=== PATIENT | female | born 1980 | race Caucasian/White ===

== ENCOUNTER 2019-10-11 22:28 | Inpatient (IN) | payer SELFPAY ==
[~2019-10-11] VITALS: Ht 162.6 cm; Wt 64.0 kg
[2019-10-11] MEDS ORDERED: IV RINGERS SOLUTION,LACTATED 1,000 ML IV SCH (23:30)
--- NOTE | 2019-10-11 23:30 | PHYS DOC ---
Adult General Chief Complaint Chief Complaint: TOE PROBLEM.." I am worried... I have gangrene of my toes.. the Lt is the worse... I am diabetic... I have DKA x 2 .. but I think the infection in my toes... are making my diabetes worse..." HPI HPI Patient is a 39 year old female who presents with bilateral lst toe infections. Patient's left first toe is worse in her right first toe. Both toes or red, swollen and and draining pus. Patient has lost the nail on her left toe. Mid foot area appears to be swollen. There are no striations. There is no adenopathy . Does have some decreased sensation on the lateral side of first toe on left. Patient known diabetic. Has had 2 recent episodes of DKA. Patient does continue to smoke. Patient recently admitted at [facility] and also at for DKA. Patient does not know her current glucose level. Patient normally takes NPH and regular insulin for her diabetes. No recent travel. No specific ill contacts. No history immunosuppression. Her normal Insulin usage is 10 units regular + 12 units NPH Am, 10 regular units a at noon, 12 regular units at dinner and 12 NPH HS. Review of Systems Review of Systems Constitutional: Denies fever or chills [] Eyes: Denies change in visual acuity, redness, or eye pain [] HENT: Denies nasal congestion or sore throat [] Respiratory: Denies cough or shortness of breath [] Cardiovascular: No additional information not addressed in HPI [] GI: Denies abdominal pain, nausea, vomiting, bloody stools or diarrhea [] : Denies dysuria or hematuria [] Musculoskeletal: Denies back pain or joint pain. The [patient]complaints of bilateral foot pain and cellulitis of the first toes Integument: Denies rash or skin lesions [] Neurologic: Denies headache, focal weakness or sensory changes [] Endocrine: Denies polyuria or polydipsia [] All other systems were reviewed and found to be within normal limits, except as documented in this note. Family History Family History Diabetes Current Medications Current Medications See nursing for home meds Allergies Allergies No known drug allergies Physical Exam Physical Exam Constitutional: Moderate acute distress, non-toxic appearance. [] HENT: Normocephalic, atraumatic, bilateral external ears normal, oropharynx moist, no oral exudates, nose normal. [] Eyes: PERRLA, EOMI, conjunctiva normal, no discharge. [] Neck: Normal range of motion, no tenderness, supple, no stridor. [] Cardiovascular:Heart rate regular rhythm, no murmur [] Lungs & Thorax: Bilateral breath sounds with apex with few scattered wheezes on auscultation [] Abdomen: Bowel sounds normal, soft, no tenderness, no masses, no pulsatile masses. [] Skin: Warm, dry, no erythema, no rash. [] Back: No tenderness, no CVA tenderness. [] Extremities: No tenderness, no cyanosis, no clubbing, ROM intact, no edema. [] Except findings of cellulitis and bilateral first toes as per history of present illness Neurologic: Alert and oriented X 3, normal motor function, normal sensory function, no focal deficits noted. [] Psychologic: Affect anxious, judgement normal, mood normal. [] EKG EKG [] Radiology/Procedures Radiology/Procedures [][place] [address] IMAGING REPORT Signed PATIENT: MARIA DEL ROSARIO LONDON AACCOUNT: [id number] : 1980 LOCATION: ER AGE: 39 SEX: F EXAM STATUS: REG ER ORD. PHYSICIAN: QUENTIN NOWAK MD REASON: Bilateral great toe infections. Hx diabetes PROCEDURE: FOOT BILAT 3V Exam: Bilateral feet 3 views INDICATION: Bilateral great toe infection TECHNIQUE: Frontal, lateral and oblique views of the right and left foot Comparisons: None FINDINGS: Left foot: Subacute appearing fracture involving the proximal diaphysis of the second and third metatarsals. No acute fractures are identified. There is soft tissue swelling at the first digit. Bone mineralization is normal. Joint spaces are well-maintained. Right foot: Bone mineralization is normal. No acute or healed fractures. Mild soft tissue swelling at the first digit. Joint spaces are well-maintained. IMPRESSION: 1. Soft tissue swelling at the first digits bilaterally without underlying osseous abdomen identified. 2. Subacute appearing fractures involving the proximal diaphysis of the second and third metatarsals on the left foot. Electronically signed by: Marisol Fritz MD (10/12/2019 1:59 AM) [facility] DICTATED AND SIGNED BY: MARISOL FRITZ MD DATE: 10/12/19 0159 CC: QUENTIN NOWAK MD; PCP,OMAR ~ Course & Med Decision Making Course & Med Decision Making Pertinent Labs and Imaging studies reviewed. (See chart for details) Patient admitted to for further eval and tx. . Bone scan and US art. pending at time of admission. Impression: 1. Cellulitis- 1st toe bilateral ( Eval for osteomyelitis ) 2. DM- 225 3. Hypokalemia 3.0 4. Hyponatremia 133 5. Malnutrition alb. 3.0 6. Tobacco Use 7. Elevated Alk Phos. 161 8. Drug Screen + Meth./ETOH 9. Hx. Lt foot Fx [] Dragon Disclaimer Dragon Disclaimer This electronic medical record was generated, in whole or in part, using a voice recognition dictation system. Departure Departure: Disposition: 01 HOME/RESIDENCE PRIOR TO ADM Condition: STABLE Referrals: PCP,OMAR (PCP) Stephen Disclaimer This chart was dictated in whole or in part using Voice Recognition software in a busy, high-work load, and often noisy Emergency Department environment. It may contain unintended and wholly unrecognized errors or omissions. QUENTIN NOWAK MD Oct 11, 2019 23:30
[2019-10-12 01:00] LABS: BASO # 0.2 x10^3/uL (0.0-0.2); BASO % 3 % (0-3); EOS # 0.1 x10^3/uL (0.0-0.7); EOS % 2 % (0-3); HEMOGLOBIN 12.2 g/dL (12.0-15.5); LYMPH # 1.9 x10^3/uL (1.0-4.8); LYMPH % 23 % (24-48); MEAN CORPUSCULAR HEMOGLOBIN 30 pg (25-35); MEAN CORPUSCULAR HGB CONC 32 g/dL (31-37); MEAN CORPUSCULAR VOLUME 94 fL (79-100); MONO # 0.5 x10^3/uL (0.0-1.1); MONO % 6 % (0-9); NEUT # 5.5 x10^3uL (1.8-7.7); NEUT % 67 % (31-73); PLATELET COUNT 458 x10^3/uL (140-400); RED BLOOD COUNT 4.03 x10^6/uL (3.50-5.40); RED CELL DISTRIBUTION WIDTH 14.8 % (11.5-14.5); WHITE BLOOD COUNT 8.2 x10^3/uL (4.0-11.0)
[2019-10-12 01:08] LABS: CALCIUM 9.1 mg/dL (8.5-10.1); CREATININE 0.8 mg/dL (0.6-1.0); GFR 80.7
[2019-10-12 01:08] LABS: BARBITURATES NEG (NEG); BENZODIAZEPINES NEG (NEG); CANNABINOIDS NEG (NEG); COCAINE NEG (NEG); METHADONE NEG (NEG); OPIATES NEG (NEG); PHENCYCLIDINE NEG (NEG)
[2019-10-12 01:09] LABS: AMPHETAMINE/METHAMPHETAMINE POS (NEG)
[2019-10-12 01:14] LABS: BILIRUBIN,URINE NEG (NEG); CLARITY,URINE CLOUDY; COLOR,URINE YELLOW; GLUCOSE,URINE >=1000 mg/dL (NEG)
[2019-10-12 01:15] LABS: BACTERIA,URINE MANY /HPF (0-FEW); NITRITE,URINE POS (NEG); RBC,URINE OCC /HPF (0-2); SQUAMOUS EPITHELIAL CELL,UR FEW /LPF; UROBILINOGEN,URINE 0.2 mg/dL (0.2 mg/dL); WBC,URINE >40 /HPF (0-4)
[2019-10-12 01:15] LABS: DIRECT BILIRUBIN 0.1 mg/dL (0.0-0.2); TOTAL BILIRUBIN 0.1 mg/dL (0.2-1.0); TOTAL PROTEIN 8.5 g/dL (6.4-8.2)
[2019-10-12] MEDS ORDERED: DIPHTH,PERTUSS(ACELL),TET TOX 0.5 ML DISP.SYRIN. VAX IM ONE (01:30)
[2019-10-12 01:35] LABS: % LYMPHS 26 % (24-48); % MONOS 9 % (0-10); % SEGS 65 % (35-66)
[2019-10-12 01:36] LABS: PLT ESTIMATE INCREASED (ADEQUATE)
[2019-10-12] MEDS ORDERED: IV NORMAL SALINE 50ML 50 ML ONE (01:38)
[2019-10-12] MEDS ORDERED: cefTRIAXone SODIUM 1 GM VIAL ONE (01:38)
[2019-10-12] MEDS ORDERED: POTASSIUM CHLORIDE 20 MEQ TABLET.ER. PO ONE (01:45)
[2019-10-12] MEDS ORDERED: HYDROcodon/IBUPROFEN 7.5/200MG 1 TAB TABLET PO ONE (01:45)
[2019-10-12] MEDS ORDERED: ONDANSETRON PF 4 MG/2 ML VIAL. IV PRN (01:45)
--- NOTE | 2019-10-12 02:02 | RAD ---
Exam: Bilateral feet 3 views INDICATION: Bilateral great toe infection TECHNIQUE: Frontal, lateral and oblique views of the right and left foot Comparisons: None FINDINGS: Left foot: Subacute appearing fracture involving the proximal diaphysis of the second and third metatarsals. No acute fractures are identified. There is soft tissue swelling at the first digit. Bone mineralization is normal. Joint spaces are well-maintained. Right foot: Bone mineralization is normal. No acute or healed fractures. Mild soft tissue swelling at the first digit. Joint spaces are well-maintained. IMPRESSION: 1. Soft tissue swelling at the first digits bilaterally without underlying osseous abdomen identified. 2. Subacute appearing fractures involving the proximal diaphysis of the second and third metatarsals on the left foot. Electronically signed by: Marisol Schaeffer MD (10/12/2019 1:59 AM) [facility]
[2019-10-12] MEDS: IV RINGERS SOLUTION,LACTATED 1,000 ML IV SCH ×3 (02:46→14:30)
[2019-10-12 03:19] VITALS: BP 105/71
[2019-10-12 06:43] VITALS: BP 93/59
[2019-10-12] MEDS ORDERED: NPH,100V SQ (06:51)
[2019-10-12] MEDS ORDERED: INSU100V5 SQ (06:51)
[2019-10-12] MEDS ORDERED: ASPIRIN 81 MG TAB.CHEW PO SCH (08:00)
[2019-10-12] MEDS: INSULIN LISPRO 300 UNITS/3 ML VIAL. SQ SCH ×3 (08:48→17:10)
[2019-10-12] MEDS ORDERED: INSULIN GLARGINE SYRINGE. SQ SCH (09:00)
[2019-10-12] MEDS ORDERED: MVI, ADULT NO.4 WITH VIT K 10 ML, FOLIC ACID SYRINGE for ER 1 MG, THIAMINE INJ 100 MG i... IV SCH ×4 (09:00)
[2019-10-12] MEDS: oxyCODONE IR 5 MG TABLET PO PRN ×2 (09:11→15:06)
[2019-10-12 10:56] VITALS: BP 97/61
[2019-10-12 15:07] VITALS: BP 119/76
--- NOTE | 2019-10-12 15:14 | RAD ---
EXAM: Triple phase bone scintigraphy. HISTORY: Foot infection, diabetes, cellulitis. COMPARISON: Plain radiograph 10/12/2019. FINDINGS: 25 mCi technetium 99m MDP was administered intravenously. Scintigraphic images of the feet were obtained in angiographic, immediate and delayed phases. Angiographic images demonstrate hyperemia within the first toe and midfoot. There is also milder hyperemia along the right medial ankle and at the tip of the right first toe. Blood pool images demonstrate a similar pattern. Delayed images demonstrate intense uptake at the left midfoot, corresponding with subacute fractures of the second and third metatarsal bases. There is also uptake at the left first distal phalanx without a clear radiographic correlate. There is mild delayed uptake at the tip of the right first distal phalanx, also without radiographic correlate. IMPRESSION: 1. Uptake along the tip of the left first toe on all 3 phases concerning for acute osteomyelitis. 2. Milder uptake along the right first distal phalanx may also represent osteomyelitis if there is an associated ulcer or infection. 3. MRI could further evaluate for osteomyelitis if there is persistent concern. 4. Subacute fractures of the left third and fourth metatarsals. Electronically signed by: Brooklyn Nguyen MD (10/12/2019 3:11 PM) [facility]
--- NOTE | 2019-10-12 16:05 | RAD ---
Bilateral lower extremity arterial duplex ultrasound study without comparison for feet and leg pain, diabetes mellitus, cellulitis. Technique and findings: Real-time grayscale and color and spectral Doppler evaluation of the arteries of the lower extremities is performed. There is normal color and spectral Doppler flow involving the bilateral common femoral, deep femoral, superficial femoral, and popliteal arteries bilaterally with triphasic flow in all distributions. On the right, normal flow is also seen within the posterior tibial, peroneal, anterior tibial arteries with triphasic flow and no focal velocity elevations. There is hyperdynamic monophasic flow within the right dorsalis pedis artery which may be normal as well. On the left, once again flow is triphasic in the posterior tibial, peroneal, and anterior arterial distributions, however there is an elevated velocity within the distal posterior tibial artery of 103 cm/s compared with a proximal posterior tibial arterial velocity of 51 cm/s, which may constitute a roughly 50 percent left [facility] stenosis. There is also monophasic flow within the dorsalis pedis artery. IMPRESSION: 1. Normal arterial duplex ultrasound study of the right lower extremity as well as left lower extremity above the knee. There is suggestion of a clinically significant stenosis within the mid posterior tibial artery on the left, and there is abnormal waveform morphology and the left dorsalis pedis artery. Electronically signed by: Johnathon Pacheco MD (10/12/2019 4:03 PM) [facility]
--- NOTE | 2019-10-12 16:43 | SSS ---
ADMIT DATE: 10/12/2019 HISTORY OF PRESENT ILLNESS: The patient is a 39-year-old female patient who came to the Emergency Room with complaint of toe problem. She is worried that she might have gangrene of her toes. The left is worse and she is diabetic. She was examined in the Emergency Room, was found to have bilateral first toe infection. The patient's left first toe is worse than her right first toe. Both toes are red, swollen, and draining pus. The patient has lost the nails on her left toe and she had midfoot area appears to be swollen, but there are no ulcerations. There is no adenopathy. She does have some decreased sensation on bilateral sides of both lower extremities. She was diagnosed with type 1 diabetes for more than 21 years and has had 2 recent episodes of DKA. The patient continued to smoke and drinks heavily. She was evaluated in the Emergency Room extensively. Her lab work showed that her white cell count is normal. She has mild hyponatremia and hypokalemia. Urinalysis showed that the urine was yellow, cloudy with more than 40 wbc's and many bacteria. Her test was negative. Toxic screen was positive for amphetamine, methamphetamine, and alcohol with a blood alcohol level of 22 mg/dL, has had her x-ray of her foot, which showed that the soft tissue swelling at the first digit bilaterally without underlying osseous abnormality identified, subacute appearing fracture involving the proximal diaphysis of the second and third metatarsal on the left side. The patient also had a bone scan, which showed that the uptake along the tip of the first toe on all 3 phases concerning for acute osteomyelitis. She has mild uptake along the right first distal phalanx, may also represent osteomyelitis if there is an associated ulcer infection. MRI could further evaluate for osteomyelitis if there is persistent concern, subacute fracture of the left third and fourth metatarsal. Given these abnormalities, a decision was made to transfer her to [facility] to consult the orthopedic surgeon and infectious disease. Continue with IV antibiotic and alcohol withdrawal protocol. PAST MEDICAL HISTORY: Significant for longstanding type 1 diabetes mellitus. She has peripheral neuropathy. She was admitted multiple times for DKA. She has been compliant with her medication. She has anemia as well as bronchial asthma. PAST SURGICAL HISTORY: Significant for x 5. She has also surgery for ectopic . ALLERGIES: She has no known drug allergies. MEDICATIONS: She is currently on following medications: She is on Humulin R 10 units 3 times a day with meals and NPH insulin 12 units twice a day. She is also on gabapentin. FAMILY HISTORY: She has 1 older sister that also has type 1 diabetes and one younger brother. She does not know her father. Her mother is alive and has type 2 diabetes, COPD, and hypertension. SOCIAL HISTORY: She is single, never , has 5 sons and 2 daughters, all in foster care. She smokes half a pack a day, drinks half to 1 gallon everyday of vodka. She claims does not use any drugs, but her urine tox screen was positive for amphetamine, methamphetamine. She is currently unemployed. REVIEW OF SYSTEMS: The patient denied any blurring of vision, cataract, glaucoma, or macular degeneration. Denied any earache, tinnitus, or sensorineural deafness. Denied any nosebleeds, stuffy nose, or postnasal drip. Denied any sore throat, sore tongue, toothache, hoarseness of voice or difficulty swallowing. Denied any nausea or vomiting. Did complain of diarrhea. Did complain also of dysuria and frequency, but denied any hematuria. Denied any chest pain, shortness of breath, orthopnea, or paroxysmal nocturnal dyspnea. PHYSICAL EXAMINATION: GENERAL: On arrival to the Emergency Room, the patient looked well and was clearly in no apparent respiratory distress. No pallor, jaundice, cyanosis, or thyromegaly. No jugular venous distension. No lower limb edema. VITAL SIGNS: Her heart rate was 112, blood pressure 104/59, temperature was 98.8, respiratory rate was 18, and oxygen saturation was 99%. HEAD, EYES, EARS, NOSE, AND THROAT: Normocephalic, atraumatic. NECK: Supple. HEART: Showed normal first and second heart sounds. No gallop or murmur. CHEST: Clear to auscultation. No crepitation or rhonchi. ABDOMEN: Distended, soft, nontender. NEUROLOGIC: She is awake, alert, responding appropriately. All cranial nerves intact. EXTREMITIES: She moves extremities without difficulty. Examination of both feet showed that both the dorsalis pedis and tibialis posterior easily palpable on both sides. She has obvious cellulitis of both big toes on both sides. She lost her left big toenail. LABORATORY DATA: Showed a white cell count of 8200, hemoglobin 12, hematocrit 38, MCV 94, and platelet count of 458,000. Her chemistry showed a serum sodium 133, potassium 3, chloride 97, bicarbonate 28, anion gap of 8, BUN 5, creatinine 0.8, estimated GFR was 80 mL per minute. Her glucose was 225, calcium was 9.1. Total bilirubin, AST, ALT were normal. Alkaline phosphatase slightly elevated. CK was 26. Total protein was 8.5, albumin was 3. Her toxic screen was positive for amphetamine, methamphetamine as well as alcohol. Her urinalysis was consistent with probably UTI. ASSESSMENT AND PLAN: The patient was given ceftriaxone and started also on metronidazole IV. Continue with IV fluid and continue on Humalog insulin as well as Lantus insulin and once the bone scan became available, a decision was made to transfer her to [facility]. FINAL TRANSFER DIAGNOSES: Bilateral big toe osteomyelitis, type 1 diabetes with recurrent episode of diabetic ketoacidosis, diabetic peripheral neuropathy, tobacco abuse disorder, alcoholism, as well as stimulant abuse disorder. NIDIA ANDERSEN MD DR: WARREN/richy JOB#: [id number] / [id number]
== END 2019-10-12 17:45 | disposition short-term general hospital (02) | DRG 638 ==
LOC: ER 22:28 → 1 SOUTH 10-12 02:00
PROVIDERS: ADMIT Internal Medicine; ATTEND Internal Medicine
DX: E10.69 Type 1 diabetes mellitus with other specified complication (principal); E87.1 Hypo-osmolality and hyponatremia; E46 Unspecified protein-calorie malnutrition; M86.172 Other acute osteomyelitis, left ankle and foot; M86.171 Other acute osteomyelitis, right ankle and foot; L03.032 Cellulitis of left toe; L03.031 Cellulitis of right toe; E87.6 Hypokalemia; Z68.24 Body mass index [BMI] 24.0-24.9, adult; J45.909 Unspecified asthma, uncomplicated; F17.210 Nicotine dependence, cigarettes, uncomplicated; F10.20 Alcohol dependence, uncomplicated; F15.10 Other stimulant abuse, uncomplicated; D64.9 Anemia, unspecified; Z83.3 Family history of diabetes mellitus; E10.42 Type 1 diabetes mellitus with diabetic polyneuropathy; Z82.49 Family history of ischemic heart disease and other diseases of the circulatory system; Z82.5 Family history of asthma and other chronic lower respiratory diseases; Z79.4 Long term (current) use of insulin
CPT/HCPCS: 36415; 73630; 78315; 80048; 80076; 80307; 81001; 81025; 82550; 82947; 85007; 85025; 87086; 90471; 90715; 93923; 96365; 96367; 99406; A9503; G0480; J0696; J1815; J3490; J7120; 99285-25

== ENCOUNTER 2019-10-21 13:20 | Emergency (ER) | payer SELFPAY ==
[~2019-10-21 13:20] MED LIST: INSU100V5 SQ; NPH,100V SQ
[2019-10-21] MEDS ORDERED: IV NORMAL SALINE 1,000ML 1,000 ML IV SCH (13:40)
[2019-10-21 13:52] LABS: BASO # 0.1 x10^3/uL (0.0-0.2); BASO % 1 % (0-3); EOS # 0.1 x10^3/uL (0.0-0.7); EOS % 1 % (0-3); HEMATOCRIT 40.8 % (36.0-47.0); HEMOGLOBIN 13.2 g/dL (12.0-15.5); LYMPH % 22 % (24-48); MEAN CORPUSCULAR HEMOGLOBIN 30 pg (25-35); MEAN CORPUSCULAR HGB CONC 32 g/dL (31-37); MEAN CORPUSCULAR VOLUME 91 fL (79-100); MONO # 0.8 x10^3/uL (0.0-1.1); MONO % 8 % (0-9); NEUT # 6.4 x10^3uL (1.8-7.7); NEUT % 69 % (31-73); PLATELET COUNT 552 x10^3/uL (140-400); RED BLOOD COUNT 4.46 x10^6/uL (3.50-5.40); WHITE BLOOD COUNT 9.4 x10^3/uL (4.0-11.0)
[2019-10-21] MEDS ORDERED: FAMOTIDINE 20 MG/2 ML VIAL IVP ONE (14:00)
[2019-10-21] MEDS ORDERED: INSULIN REGULAR 100 UNIT/ML 3ML VIAL. IV ONE (14:00)
[2019-10-21] MEDS ORDERED: ONDANSETRON PF 4 MG/2 ML VIAL. IVP ONE (14:00)
--- NOTE | 2019-10-21 14:01 | RAD ---
AP chest. HISTORY: Chest pain AP view was taken of the chest. Patient's taken a poor inspiration. Lungs are free of infiltrates. Heart is normal in size. There is no effusion. IMPRESSION: 1. No acute chest disease. Electronically signed by: Bernardino Jerome MD (10/21/2019 1:58 PM) [facility]
[2019-10-21 14:07] VITALS: BP 157/89
--- NOTE | 2019-10-21 14:16 | PHYS DOC ---
Past History Past Medical History: Anemia, Asthma, Diabetes Past Surgical History: , Other Additional Past Surgical Histo: ectopic, d & c Alcohol Use: Heavy Drug Use: None Adult General Chief Complaint Chief Complaint: MULTIPLE COMPLAINTS HPI HPI Patient is a 39-year-old female who presents with complaint of chest and abdominal pain. Patient recently had been admitted to [facility] and discharged home after being diagnosed with gangrenous lesions on both feet. Patient states that she has had abdominal pain with nausea and vomiting as well as chest pain since being released from hospital. Patient's indicates that patient was on heavy duty pain medications while there. Patient also admits to drinking alcohol and when asked when her last drink was, she looked at the cup in her hand and said that was the last drink that she had and then threw the rest of the trash. Patient points to her epigastric region as to where the worst of her abdominal pain medicine she points to her mid chest as to where her chest hurts. She states that she has been throwing up a lot. She also thinks that she may be going through withdrawal from pain medications.[] Review of Systems Review of Systems Constitutional: Denies fever or chills [] Respiratory: Positive cough without shortness of breath [] Cardiovascular: No additional information not addressed in HPI [] GI: Positive abdominal pain with nausea and vomiting. Denies diarrhea [] Integument: Denies rash or skin lesions [] Neurologic: Denies headache, focal weakness or sensory changes [] All other systems were reviewed and found to be within normal limits, except as documented in this note. Current Medications Current Medications Current Medications Medications (Trade) Dose Ordered Sig/[facility] Start Time Stop Time Status Last Admin Dose Admin Famotidine (Pepcid Vial) 20 mg 1X ONCE 10/21/19 14:00 10/21/19 14:01 DC 10/21/19 13:59 20 MG Insulin Human Regular (HumuLIN R VIAL) 10 unit 1X ONCE 10/21/19 14:00 10/21/19 14:01 DC 10/21/19 13:59 10 UNIT Ondansetron HCl (Zofran) 4 mg 1X ONCE 10/21/19 14:00 10/21/19 14:01 DC 10/21/19 13:58 4 MG Sodium Chloride 1,000 ml @ 1,000 mls/hr Q1H 10/21/19 13:40 1/5/20 14:39 10/21/19 13:59 1,000 MLS/HR Allergies Allergies Allergies Coded Allergies Type Severity Reaction Last Updated Verified No Known Drug Allergies 10/12/19 No Physical Exam Physical Exam Constitutional: Well developed, well nourished, no acute distress, non-toxic appearance. [] HENT: Normocephalic, atraumatic, bilateral external ears normal, oropharynx dry, no oral exudates, nose normal. [] Eyes: PERRLA, EOMI, conjunctiva normal, no discharge. [] Neck: Normal range of motion, no tenderness, supple, no stridor. [] Cardiovascular: Tachycardic rate with regular rhythm[] Lungs & Thorax: Bilateral breath sounds clear to auscultation [] Abdomen: Bowel sounds normal, soft, with epigastric tenderness. [] Skin: Warm, dry, no erythema, no rash. [] Extremities: No tenderness, no cyanosis, no clubbing, ROM intact. [] Neurologic: Alert and oriented X 3, no focal deficits noted. [] Current Patient Data Lab Results Laboratory Tests Test 10/21/19 13:32 10/21/19 13:35 Glucose (Fingerstick) 454 mg/dL (70-99) H White Blood Count 9.4 x10^3/uL (4.0-11.0) Red Blood Count 4.46 x10^6/uL (3.50-5.40) Hemoglobin 13.2 g/dL (12.0-15.5) Hematocrit 40.8 % (36.0-47.0) Mean Corpuscular Volume 91 fL (79-100) Mean Corpuscular Hemoglobin 30 pg (25-35) Mean Corpuscular Hemoglobin Concent 32 g/dL (31-37) Red Cell Distribution Width 15.0 % (11.5-14.5) H Platelet Count 552 x10^3/uL (140-400) H Neutrophils (%) (Auto) 69 % (31-73) Lymphocytes (%) (Auto) 22 % (24-48) L Monocytes (%) (Auto) 8 % (0-9) Eosinophils (%) (Auto) 1 % (0-3) Basophils (%) (Auto) 1 % (0-3) Neutrophils # (Auto) 6.4 x10^3uL (1.8-7.7) Lymphocytes # (Auto) 2.0 x10^3/uL (1.0-4.8) Monocytes # (Auto) 0.8 x10^3/uL (0.0-1.1) Eosinophils # (Auto) 0.1 x10^3/uL (0.0-0.7) Basophils # (Auto) 0.1 x10^3/uL (0.0-0.2) EKG EKG EKG demonstrates sinus tachycardia with a rate of 123.[] Radiology/Procedures Radiology/Procedures [] Impressions: PROCEDURE: CHEST AP ONLY AP chest. HISTORY: Chest pain AP view was taken of the chest. Patient's taken a poor inspiration. Lungs are free of infiltrates. Heart is normal in size. There is no effusion. IMPRESSION: 1. No acute chest disease. Electronically signed by: Bernardino Jerome MD (10/21/2019 1:58 PM) [facility] PROCEDURE: CT ABD PELV W/ IV CONTRST ONLY CT abdomen and pelvis with contrast. HISTORY: Abdominal pain CT scan the abdomen and pelvis was done using 75 mL Omnipaque 300 contrast. Comparison is made with a study from June 28, 2019. Lung bases are clear. There is no effusion. There is a lesion at the dome of the liver measuring 1.9 cm. Lesion is does not enhance like a typical hemangioma but an atypical hemangioma is possible or other lesions. The lesion was not identified on the precontrast study from June. There is a second tiny lesion more laterally in the right liver. MRI of the liver would be of benefit for further evaluation. There is decreased density along the falciform ligament likely focal fatty infiltration which was present on the prior study. There is no calcified gallstone. Spleen and at adrenal glands are normal. Pancreas is normal. There is no mass or hydronephrosis in the kidneys. There is no free air or ascites or bowel obstruction. Appendix is normal. The uterus is enlarged. There is a 2.9 cm cyst in the left ovary. Right ovary was normal. There is no free fluid in the pelvis. Bowel pattern is normal. There is density in the anterior abdominal wall likely injection sites. IMPRESSION: 1. Liver lesion possible atypical hemangioma or a other lesion, an MRI would be recommended. 2. Left ovarian cyst. 3. No abdominal or pelvic mass otherwise identified. 4. No other acute finding. Course & Med Decision Making Course & Med Decision Making Pertinent Labs and Imaging studies reviewed. (See chart for details) [] Stephen Disclaimer Dragon Disclaimer This electronic medical record was generated, in whole or in part, using a voice recognition dictation system. Departure Departure: Impression: Primary Impression: Abdominal pain Additional Impressions: Atypical chest pain Vomiting Disposition: HOME, SELF-CARE Condition: STABLE Referrals: PCP,NO (PCP) Patient Instructions: Abdominal Pain, Chest Pain (Nonspecific), Nausea and Vomiting Scripts Ondansetron (ONDANSETRON ODT) 4 Mg Tab.rapdis 1 TAB PO PRN Q6-8HRS PRN for NAUSEA, #12 TAB Prov: HAILE KHOURY Jr. DO 10/21/19 Problem Qualifiers Primary Impression: Abdominal pain Abdominal location: unspecified location Qualified Codes: R10.9 - Unspecified abdominal pain Additional Impressions: Vomiting Vomiting type: unspecified Vomiting Intractability: non-intractable Nausea presence: with nausea Qualified Codes: R11.2 - Nausea with vomiting, unspecified HAILE KHOURY Jr. DO Oct 21, 2019 14:16
[2019-10-21 14:38] LABS: CALCIUM 11.4 mg/dL (8.5-10.1); CREATININE 0.9 mg/dL (0.6-1.0); GFR 70.5; POTASSIUM 4.1 mmol/L (3.5-5.1)
[2019-10-21 14:45] LABS: ALBUMIN 3.4 g/dL (3.4-5.0); ALBUMIN/GLOBULIN RATIO 0.7 (1.0-1.7); TOTAL BILIRUBIN 0.6 mg/dL (0.2-1.0); TOTAL PROTEIN 8.5 g/dL (6.4-8.2)
[2019-10-21] MEDS ORDERED: IOHEXOL 300 MG/ML 75 ML VIAL. IV ONE (15:30)
--- NOTE | 2019-10-21 15:58 | NUR ---
BGL CHECKED AT 1555 AND WAS 209. RN NOTIFIED.
--- NOTE | 2019-10-21 16:25 | RAD ---
CT abdomen and pelvis with contrast. HISTORY: Abdominal pain CT scan the abdomen and pelvis was done using 75 mL Omnipaque 300 contrast. Comparison is made with a study from June 28, 2019. Lung bases are clear. There is no effusion. There is a lesion at the dome of the liver measuring 1.9 cm. Lesion is does not enhance like a typical hemangioma but an atypical hemangioma is possible or other lesions. The lesion was not identified on the precontrast study from June. There is a second tiny lesion more laterally in the right liver. MRI of the liver would be of benefit for further evaluation. There is decreased density along the falciform ligament likely focal fatty infiltration which was present on the prior study. There is no calcified gallstone. Spleen and at adrenal glands are normal. Pancreas is normal. There is no mass or hydronephrosis in the kidneys. There is no free air or ascites or bowel obstruction. Appendix is normal. The uterus is enlarged. There is a 2.9 cm cyst in the left ovary. Right ovary was normal. There is no free fluid in the pelvis. Bowel pattern is normal. There is density in the anterior abdominal wall likely injection sites. IMPRESSION: 1. Liver lesion possible atypical hemangioma or a other lesion, an MRI would be recommended. 2. Left ovarian cyst. 3. No abdominal or pelvic mass otherwise identified. 4. No other acute finding. PQRS Compliance Statement: One or more of the following individualized dose reduction techniques were utilized for this examination: 1. Automated exposure control 2. Adjustment of the mA and/or kV according to patient size 3. Use of iterative reconstruction technique Electronically signed by: Bernardino Jerome MD (10/21/2019 4:22 PM) [id number]
[2019-10-21] MEDS ORDERED: ONDA4TAB12 PO (16:31)
--- NOTE | 2019-10-21 17:50 | EKG ---
[address] [address] Test Date: 2019-10-21 Test Time: 13:38:39 Pat Name: MARIA DEL ROSARIO [place] Department: Room: Gender: F [employer] Machine Operator: : [id number] Requested By: HAILE KHOURY Order Number: [id number] Reading MD: Measurements Intervals Jackson Rate: 123 P: 70 SD: 138 QRS: 65 QRSD: 68 T: 80 QT: 308 QTc: 446 Interpretive Statements SINUS TACHYCARDIA QRS(T) CONTOUR ABNORMALITY CONSIDER ANTEROLATERAL MYOCARDIAL DAMAGE CONSIDER INFERIOR MYOCARDIAL DAMAGE POSSIBLY ABNORMAL ECG RI6.01 No previous ECG available for comparison
== END 2019-10-21 16:33 | disposition home or self-care (01) ==
LOC: ER 13:20
DX: R07.89 Other chest pain (principal); R10.13 Epigastric pain; R11.2 Nausea with vomiting, unspecified; E11.9 Type 2 diabetes mellitus without complications; J45.909 Unspecified asthma, uncomplicated; F10.20 Alcohol dependence, uncomplicated; Z86.2 Personal history of diseases of the blood and blood-forming organs and certain disorders involving the immune mechanism; Z98.890 Other specified postprocedural states; Y90.0 Blood alcohol level of less than 20 mg/100 ml
CPT/HCPCS: 36415; 71045; 74177; 80053; 82010; 82947; 83690; 84484; 85025; 93005; 96361; 96374; 96375; 99285; G0480; J1815; J2405; J3490; Q9967; J7030